=== PATIENT | male | born 1960 | race Caucasian/White ===

== ENCOUNTER 2017-06-28 20:18 | Emergency (ER) | payer BC ==
[2017-06-28 20:32] VITALS: BP 181/99
--- NOTE | 2017-06-28 20:46 | EDM.PDOC ---
ED HPI GENERAL MEDICAL PROBLEM - General Chief Complaint: Skin Complaint Stated Complaint: RED SORE SPOT ON LEFT SIDE OF STOMACH Time Seen by Provider: 06/28/17 20:35 Source of Information: Reports: Patient History Limitations: Reports: No Limitations - History of Present Illness INITIAL COMMENTS - FREE TEXT/NARRATIVE: 57-year-old male attends the ED with skin rash and hypersensitive skin in his left flank and franklyn-abdominal wall. He has 2 forms of skin rashes identified on exam. This lesion started on his left lower abdomen yesterday morning when he awoke to shower. His flank areas become very hypersensitive even his shirt hurts to touch this area over the last 24 hours. The second rashes on his elbows and inner aspect of thighs is been present for many weeks and is just really itchy and dry and scaly. No fever or chills. He noticed that one of the lesions on his left anterior abdomen seemed to be showing a red streak traveling up towards his chest tonight which is the reason that he came to the ED. Onset: Sudden (Yesterday a.m. rash started on the abdominal wall with hyper- paresthetic skin left flank area.) Onset Date: 06/27/17 Onset Time: 07:00 Duration: Hour(s): Location: Reports: Abdomen (Left franklyn-abdominal wall), Other (Other rashes once to the inner aspect of his elbows in the inner aspect of his thighs.) Quality: Reports: Ache, Burning, Other (Pruritic but burning pain.) Severity: Moderate (Pain is 7-8 out of 10 in his left hemiabdomen and flank area.) Improves with: Reports: None Worsens with: Reports: Other (Touching the area.) Context: Denies: Activity, Exercise, Lifting, Sick Contact, Trauma, Other Associated Symptoms: Reports: No Other Symptoms 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 06/28/17 [History] Betamethasone Dipropionate 50 gm TP DAILY #1 gel..gram. 06/28/17 [Rx] Doxycycline [Vibramycin] 100 mg PO Q12HR #20 cap 06/28/17 [Rx] Metoprolol. 06/28/17 [History] Otc Reflux Med? 06/28/17 [History] oxyCODONE HCl/Acetaminophen [Percocet 5-325 mg Tablet] 1 - 2 each PO Q4H PRN # 20 tablet 06/28/17 [Rx] valACYclovir HCl [valACYclovir] 1,000 mg PO TID #21 tablet 06/28/17 [Rx] Past Medical History Cardiovascular History: Reports: High Cholesterol, Hypertension Social & Family History - Living Situation & Occupation Occupation: Employed (Recently took a job position in the company that demands a lot more stress. This is interfering with his home life a great deal.) ED ROS GENERAL - Review of Systems Review Of Systems: See Below Constitutional: Reports: Malaise, Weakness, Fatigue, Decreased Appetite ( Disrupted sleep pattern). Denies: Fever, Chills HEENT: Reports: No Symptoms Respiratory: Reports: No Symptoms Cardiovascular: Reports: No Symptoms Endocrine: Reports: No Symptoms GI/Abdominal: Reports: No Symptoms : Reports: Frequency, Other (Nocturia usually once.) Musculoskeletal: Reports: No Symptoms Skin: Reports: Other (Rash as described above. Eczematous dermatitis elbows and inner thighs but shingles type rash left franklyn-abdominal wall in the T 11-T12 dermatome.) Neurological: Reports: No Symptoms, Paresthesia (Hyperperistaltic supersensitive to touch left flank and franklyn-abdominal wall) Psychiatric: Reports: No Symptoms Hematologic/Lymphatic: Reports: No Symptoms ED EXAM, SKIN/RASH Exam: See Below Exam Limited By: No Limitations General Appearance: Alert, WD/WN, No Apparent Distress Eye Exam: Bilateral Eye: Normal Inspection Cardiovascular: Normal Peripheral Pulses, Regular Rate, Rhythm, No Edema (Blood pressure is a little high.), No Murmur GI/Abdominal: Normal Bowel Sounds, Soft, Non-Tender, No Organomegaly, Other ( Mildly protuberant abdomen. No surgical scars) Back Exam: Normal Inspection, Full Range of Motion, Other (No skin lesions left flank but skin is super sensitive to touch in this area.). No: CVA Tenderness ( L), CVA Tenderness (R) Extremities: Normal Inspection, Normal Range of Motion (Skin rash elbows and inner thighs), Non-Tender, No Pedal Edema, Normal Capillary Refill, Other Neurological: Alert, Oriented, CN II-XII Intact, Normal Cognition, Normal Gait Psychiatric: Normal Affect, Normal Mood Skin: Warm, Dry, Other (Patient has 2 types of skin rash. He has an eczematous dermatitis on the inner aspect of elbows and inner thighs which is chronic. Also due to dry skin. Treated with betamethasone cream. No other rashes on the left franklyn-abdominal wall and at present he is a large 2.5 cm circular area that is bubbly but not truly vesicular area. The one other lesion is to the lateral aspect of the other and is showing red streaking traveling up towards his chest streaking is approximate 5 inches in length. It appears that this lesion has been scratched or excoriated and likely secondarily infected. He complains of left flank pain and skin is super sensitive to touch suggesting this is the beginning of shingles dermatitis. The initial rash was first noted yesterday morning. It is deeply burning and uncomfortable.) Location, Skin: Abdomen, Other (Left franklyn-abdominal wall eczematous rash involves her aspect of his elbows and inner aspect of his thighs.) Characteristics: Macular, Vesicular (Almost vesicular in the round lesion left medial abdominal wall and the T11 dermatome.), Other (Lateral singular lesion has been excoriated or scratched and is starting to show secondary signs of lymphangitis or cellulitis traveling up his left abdomen towards the chest. It is partially 5 inches in length and warm to touch.) Associated features: Warmth, Tenderness Course - Vital Signs Last Recorded V/S: Last Vital Signs Temp 36.7 C 06/28/17 20:30 Pulse 76 06/28/17 20:30 Resp BP 181/99 H 06/28/17 20:30 Pulse Ox 98 06/28/17 20:30 - Radiology Interpretation Free Text/Narrative:: 57-year-old male presents to the ED for evaluation of skin rash in 2 places. Examination reveals that he has an eczematous dermatitis involving the inner aspect of his elbows and inner thighs which is of some degree of chronicity. Advised lubricant ointment with no perfume in 2 areas at bedtime and betamethasone once daily in the morning. The other skin rash involves the left franklyn-abdominal wall and the T11-T12 dermatome and was first noted yesterday morning. Is bright red erythematous and one lesion has been scratched it appears on his lateral abdomen and is starting to show an erythematous streak up the abdomen to warts the chest on the left side. His skin in his left flank areas hyper sensitive to touch suggesting shingles development. The lesion in the medial abdomen is 2.5 cm in diameter bright red and bubbly but not truly vesicular yet. I believe he is developing shingles due to the sensitivity of pain in the distribution. He will be started on valacyclovir 1 g 3 times a day for 7 days. Percocet tabs 12/22/24 one or 2 every 4-6 hours for pain relief when not at work and to help sleep. During the daytime he can use Motrin 600 mg every 6 hours as needed. Due to the possibility of secondary wound infection and streaking I placed him on doxycycline 100 mg twice daily for 10 days. Methasone valerate ointment will be applied to the skin rash once daily on his elbows and inner thighs until this clears. He is for follow-up if not markedly improved in a week's time or sooner. Departure - Departure Time of Disposition: 20:46 Disposition: Home, Self-Care 01 Condition: Fair Clinical Impression: Wound infection Shingles rash Qualifiers: Herpes zoster complications: without complications Qualified Code(s): B02.9 - Zoster without complications Eczema Qualifiers: Eczema type: unspecified Qualified Code(s): L30.9 - Dermatitis, unspecified - Discharge Information Prescriptions: Doxycycline [Vibramycin] 100 mg PO Q12HR #20 cap Betamethasone Dipropionate 50 gm TP DAILY #1 gel..gram. oxyCODONE HCl/Acetaminophen [Percocet 5-325 mg Tablet] 1 - 2 each PO Q4H PRN # 20 tablet PRN Reason: pain relief. valACYclovir HCl [valACYclovir] 1,000 mg PO TID #21 tablet Referrals: PCP,None [Primary Care Provider] - Forms: ED Department Discharge Additional Instructions: Evaluation in the emergency room tonight in regards to skin rashes which are of 2 different sources. Skin rash on the inner aspect of the right elbow in the inner aspect of thighs is an eczema which is due to very dry scaly skin. Treatment is skin emollient to these areas once daily with no perfume and bed and betamethasone valerate cream once daily total dose areas at bedtime until clear. Rash tends to come and go and you may have to use the salve intermittently especially through the winter months. The second rash on her abdominal wall with hypersensitivity in your left flank area strongly suggest the development of shingles. One lesion on the left upper wall some red streaking going up towards the chest suggesting that it has been scratched and then developing secondary infection. Therefore you need to start antibiotic doxycycline 100 mg twice daily for 10 days to clear up wound infection. The shingles rash is treated with antiviral medication valacyclovir 1 g 3 times daily for the next 7 days. The rash will likely continue to break out for the next week and then starts to scab over and leaves a discoloration of the skin sometimes for several months before returns to normal. The goal of the antiviral medication is to prevent long-term pain no postherpetic neuralgia. Continue Motrin 600 mg every 6 hours needed for relief of pain especially while at work. When the pain is worse or at nighttime and interferes with her sleeping may use stronger pain medication Percocet 5/3/25 milligram tablet 1 or 2 every 4-6 hours for pain relief. 600mg of of Motrin and 1 Percocet often do the job quite well. Cannot use the strong pain medications while operating a motor vehicle etc. Follow-up with personal physician if any other problems occur or if you develop fever chills nausea or vomiting return to the ED.
== END 2017-06-28 21:06 | disposition home or self-care (01) ==
LOC: JD.ED 20:18
DX: B02.9 Zoster without complications (principal); L30.9 Dermatitis, unspecified; L08.9 Local infection of the skin and subcutaneous tissue, unspecified; I10 Essential (primary) hypertension; E78.00 Pure hypercholesterolemia, unspecified; Z79.899 Other long term (current) drug therapy; Z91.013 Allergy to seafood
CPT/HCPCS: 99283

== ENCOUNTER 2019-10-17 06:24 | Emergency (ER) | payer BC ==
[2019-10-17 06:41] VITALS: BP 182/104; PULSE 82
[2019-10-17] MEDS ORDERED: Sodium Chloride 0.9% 10 ML Syringe FLUSH PRN ×2 (07:08→07:15)
[2019-10-17] MEDS ORDERED: Iopamidol 755 Mg/ML 100 ML Bottle IVPUSH ONE (07:15)
[2019-10-17] MEDS ORDERED: Sodium Chloride 0.9% 100 ML IV SCH (07:15)
[2019-10-17] MEDS ORDERED: diphenhydrAMINE 50 MG/ML SDV IVPUSH ONE (07:29)
--- NOTE | 2019-10-17 08:41 | EDM.PDOC ---
ED HPI GENERAL MEDICAL PROBLEM - General Chief Complaint: Cardiovascular Problem Stated Complaint: blood pressure Time Seen by Provider: 10/17/19 07:02 Source of Information: Reports: Patient History Limitations: Reports: No Limitations - History of Present Illness INITIAL COMMENTS - FREE TEXT/NARRATIVE: The patient presents with chest pressure and palpitations. This started at 5: 30am. The pressure is gone now. He has no shortness of breath. He has a history of AAA repair and aortic valve replacement in June. He has been doing good since the. He would get these symptoms before the surgery. He has no other symptoms such as fever, chills, cough, congestion, runny nose, abdominal pain, nausea or vomiting. He checked his blood pressure this morning and it was high at 180. His pressure is better now. He has a history of hypertension but no history of diabetes or hypercholesterolemia. Onset: Sudden Duration: Hour(s): Location: Reports: Chest Quality: Reports: Pressure Severity: Moderate Improves with: Reports: None Worsens with: Reports: None Associated Symptoms: Reports: Chest Pain. Denies: Cough, Fever/Chills, Headaches, Nausea/Vomiting, Shortness of Breath - Related Data Allergies Allergy/AdvReac Type Severity Reaction Status Date / Time shellfish derived Allergy Swelling Verified 10/17/19 06:41 sulfacetamide sodium Allergy Rash Verified 10/17/19 06:41 [From Sulfamide] Home Meds: Home Meds Aspirin 81 mg PO DAILY 10/17/19 [History] Metoprolol Tartrate 25 mg PO DAILY 10/17/19 [History] atorvaSTATin [Lipitor] 10 mg PO DAILY 10/17/19 [History] Past Medical History Cardiovascular History: Reports: Congenital Septal Defect, Heart Valve Replacement, High Cholesterol, Hypertension Other Cardiovascular History: valve problem - Past Surgical History Musculoskeletal Surgical History: Reports: Joint Replacement, Knee Replacement, Shoulder Replacement, Shoulder Surgery Social & Family History - Tobacco Use Smoking Status *Q: Never Smoker Second Hand Smoke Exposure: No - Caffeine Use Caffeine Use: Reports: None - Recreational Drug Use Recreational Drug Use: No - Living Situation & Occupation Occupation: Employed (Recently took a job position in the company that demands a lot more stress. This is interfering with his home life a great deal.) ED ROS GENERAL - Review of Systems Review Of Systems: See Below Constitutional: Reports: No Symptoms HEENT: Reports: No Symptoms Respiratory: Reports: No Symptoms Cardiovascular: Reports: Chest Pain Endocrine: Reports: No Symptoms GI/Abdominal: Reports: No Symptoms : Reports: No Symptoms Musculoskeletal: Reports: No Symptoms Skin: Reports: No Symptoms Neurological: Reports: No Symptoms ED EXAM, GENERAL - Physical Exam Exam: See Below Exam Limited By: No Limitations General Appearance: Alert, No Apparent Distress Ears: Normal External Exam Nose: Normal Inspection Head: Atraumatic, Normocephalic Neck: Normal Inspection Respiratory/Chest: No Respiratory Distress, Lungs Clear, Normal Breath Sounds Cardiovascular: Regular Rate, Rhythm, No Edema, No Murmur GI/Abdominal: Soft, Non-Tender, No Organomegaly, No Mass Back Exam: Normal Inspection Extremities: Normal Inspection EKG INTERPRETATION EKG Date: 10/17/19 Time: 06:48 Rhythm: NSR Rate (Beats/Min): 68 [place]: Normal P-Wave: Present QRS: Normal ST-T: Normal QT: Normal Course - Vital Signs Last Recorded V/S: Last Vital Signs Temp 97.5 F 10/17/19 06:37 Pulse 82 10/17/19 06:37 Resp 18 10/17/19 06:37 BP 182/104 H 10/17/19 06:37 Pulse Ox 97 10/17/19 06:37 - Orders/Labs/Meds Orders: Active Orders 24 hr Category Date Time Status Cardiac Monitoring [RC] . DIRECTED Care 10/17/19 07:08 Active EKG 12 Lead [EKG Documentation Completion] [RC] STAT Care 10/17/19 06:47 Active Peripheral IV Care [RC] . DIRECTED Care 10/17/19 07:10 Active TROPONIN I [CHEM] Stat Lab 10/17/19 09:28 Ordered Sodium Chloride 0.9% [Normal Saline] 100 ml Med 10/17/19 07:15 Active IV ASDIRECTED Sodium Chloride 0.9% [Saline Flush] Med 10/17/19 07:08 Active 10 ml FLUSH ASDIRECTED PRN Sodium Chloride 0.9% [Saline Flush] Med 10/17/19 07:15 Active 10 ml FLUSH ONETIME PRN Peripheral IV Insertion Adult [OM.PC] Stat Oth 10/17/19 07:08 Ordered Medication Orders Sodium Chloride (Normal Saline) 100 mls @ 75 mls/hr IV ASDIRECTED GEOFF Last Admin: 10/17/19 07:52 Dose: 75 mls/hr Sodium Chloride (Saline Flush) 10 ml FLUSH ASDIRECTED PRN PRN Reason: Keep Vein Open Last Admin: 10/17/19 07:35 Dose: 10 ml Sodium Chloride (Saline Flush) 10 ml FLUSH ONETIME PRN PRN Reason: IV FLUSH Last Admin: 10/17/19 07:52 Dose: 10 ml Labs: Laboratory Tests 10/17/19 10/17/19 Range/Units 07:30 07:30 WBC 5.04 (4.23-9.07) K/mm3 RBC 5.08 (4.63-6.08) M/mm3 Hgb 14.3 (13.7-17.5) gm/dl Hct 43.0 (40.1-51.0) % MCV 84.6 (79.0-92.2) fl MCH 28.1 (25.7-32.2) pg MCHC 33.3 (32.2-35.5) g/dl RDW Std Deviation 50.9 H (35.1-43.9) fL Plt Count 217 (163-337) K/mm3 MPV 9.3 L (9.4-12.3) fl Neut % (Auto) 59.7 (34.0-67.9) % Lymph % (Auto) 25.8 (21.8-53.1) % [place] % (Auto) 11.9 (5.3-12.2) % Eos % (Auto) 1.8 (0.8-7.0) Baso % (Auto) 0.6 (0.1-1.2) % Neut # (Auto) 3.01 (1.78-5.38) K/mm3 Lymph # (Auto) 1.30 L (1.32-3.57) K/mm3 [place] # (Auto) 0.60 (0.30-0.82) K/mm3 Eos # (Auto) 0.09 (0.04-0.54) K/mm3 Baso # (Auto) 0.03 (0.01-0.08) K/mm3 Sodium 140 (136-145) mEq/L Potassium 4.3 (3.5-5.1) mEq/L Chloride 105 (98-107) mEq/L Carbon Dioxide 26 (21-32) mEq/L Anion Gap 13.3 (5-15) BUN 14 (7-18) mg/dL Creatinine 1.0 (0.7-1.3) mg/dL Est Cr Clr Drug Dosing 81.50 mL/min Estimated GFR (MDRD) > 60 (>60) mL/min BUN/Creatinine Ratio 14.0 (14-18) Glucose 119 H (74-106) mg/dL Calcium 9.4 (8.5-10.1) mg/dL Total Bilirubin 0.4 (0.2-1.0) mg/dL AST 27 (15-37) U/L ALT 41 (16-63) U/L Alkaline Phosphatase 93 (46-116) U/L Troponin I < 0.017 (0.00-0.056) ng/mL Total Protein 8.6 H (6.4-8.2) g/dl Albumin 3.9 (3.4-5.0) g/dl Globulin 4.7 gm/dL Albumin/Globulin Ratio 0.8 L (1-2) Meds: Medications Generic Name Dose Route Start Last Admin Trade Name Freq PRN Reason Stop Dose Admin Sodium Chloride 100 mls @ 75 mls/hr 10/17/19 07:15 10/17/19 07:52 Normal Saline IV 75 mls/hr ASDIRECTED GEOFF Administration Sodium Chloride 10 ml 10/17/19 07:08 10/17/19 07:35 Saline Flush FLUSH 10 ml ASDIRECTED PRN Administration Keep Vein Open Sodium Chloride 10 ml 10/17/19 07:15 10/17/19 07:52 Saline Flush FLUSH 10 ml ONETIME PRN Administration IV FLUSH Discontinued Medications Generic Name Dose Route Start Last Admin Trade Name Frejohnathan PRN Reason Stop Dose Admin Diphenhydramine HCl 50 mg 10/17/19 07:29 10/17/19 07:34 Benadryl IVPUSH 10/17/19 07:30 50 mg ONETIME ONE Administration Iopamidol 100 ml 10/17/19 07:15 10/17/19 07:52 [id number] (76%) IVPUSH 10/17/19 07:16 100 ml ONETIME ONE Administration - Re-Assessments/Exams Free Text/Narrative Re-Assessment/Exam: 10/17/19 08:41 I ordered an IV saline lock, EKG, CT of his chest, abdomen and pelvis and labs. His EKG shows a NSR with no acute changes. His CBC and CMP look good. His troponin is negative. I am waiting for the results of the CT scan. I did give him some benadryl because he has a shellfish allergy. 10/17/19 09:[address] of his chest shows thoracic aorta shows no aneurysm or dissection. Other findings believed to be incidental as noted above. Nothing acute is seen on CT study of the chest. The CT of his abdomen and pelvis shows abdominal aorta shows no aneurysm or dissection. Other findings which are felt to be incidental. No acute abnormality is appreciated on CT study of the abdomen and pelvis. He feels good. I will do a repeat troponin and discharge him home. Departure - Departure Time of Disposition: 09:40 Disposition: Home, Self-Care 01 Condition: Good Clinical Impression: Chest pain Qualifiers: Chest pain type: unspecified Qualified Code(s): R07.9 - Chest pain, unspecified Referrals: Leo Alvarenga Jr, MD [Primary Care Provider] - 1 Week Forms: ED Department Discharge Additional Instructions: Take your medication as prescribed. Follow up with your doctor within a week. Please return if you are worse. Sepsis Event Note - Evaluation Sepsis Screening Result: No Definite Risk - Focused Exam Vital Signs: Vital Signs Temp Pulse Resp BP Pulse Ox 10/17/19 06:37 97.5 F 82 18 182/104 H 97 Date Exam was Performed: 10/17/19 Time Exam was Performed: 09:35 - My Orders Last 24 Hours: My Active Orders 10/17/19 06:47 EKG 12 Lead [EKG Documentation Completion] [RC] STAT 10/17/19 07:08 Cardiac Monitoring [RC] . DIRECTED Sodium Chloride 0.9% [Saline Flush] 10 ml FLUSH ASDIRECTED PRN Peripheral IV Insertion Adult [OM.PC] Stat 10/17/19 07:10 Peripheral IV Care [RC] . DIRECTED 10/17/19 07:15 Sodium Chloride 0.9% [Normal Saline] 100 ml IV ASDIRECTED Sodium Chloride 0.9% [Saline Flush] 10 ml FLUSH ONETIME PRN 10/17/19 09:28 TROPONIN I [CHEM] Stat - Assessment/Plan Last 24 Hours: My Active Orders 10/17/19 06:47 EKG 12 Lead [EKG Documentation Completion] [RC] STAT 10/17/19 07:08 Cardiac Monitoring [RC] . DIRECTED Sodium Chloride 0.9% [Saline Flush] 10 ml FLUSH ASDIRECTED PRN Peripheral IV Insertion Adult [OM.PC] Stat 10/17/19 07:10 Peripheral IV Care [RC] . DIRECTED 10/17/19 07:15 Sodium Chloride 0.9% [Normal Saline] 100 ml IV ASDIRECTED Sodium Chloride 0.9% [Saline Flush] 10 ml FLUSH ONETIME PRN 10/17/19 09:28 TROPONIN I [CHEM] Stat
--- NOTE | 2019-10-17 08:55 | CT ---
CT chest Technique: Multiple axial sections were obtained from above the lung apices inferiorly through the lung bases. Intravenous contrast was utilized. Comparison: No prior chest imaging is available. Findings: Thoracic aorta shows no aneurysm. No dissection is seen. Previous aortic valve surgery is noted. No contrast extravasation is seen into the mediastinum. No adenopathy is seen. Axillary regions show no adenopathy. No pericardial thickening is seen. Lungs are clear with no acute parenchymal change. No pleural effusions are seen. Bone window settings were reviewed which show scattered degenerative change within the spine. Previous sternotomy is noted. Old healed fracture is noted within the 10th right rib laterally. Impression: 1. Thoracic aorta shows no aneurysm or dissection. 2. Other findings believed to be incidental as noted above. Nothing acute is seen on CT study of the chest. Diagnostic code #2 CT abdomen and pelvis Technique: Multiple axial sections were obtained from above the dome of the diaphragm inferiorly through the pubic symphysis. Intravenous contrast was utilized. No oral contrast has been given. Findings: Abdominal aorta shows no aneurysm. No dissection is appreciated. Celiac axis and superior mesenteric arteries are patent. No discrete renal artery stenosis is seen. Liver contains no focal abnormality. Spleen appears within normal limits. Adrenal glands show no nodule. Kidneys show symmetric contrast enhancement without hydronephrosis or mass. Pancreas is within normal limits. Gallbladder contains no calcified gallstones. No retroperitoneal adenopathy or mesenteric abnormalities are seen. No pelvic mass or adenopathy is noted. Small fat-containing bilateral inguinal hernias are noted. Appendix is felt to be visualized and is normal in size. Bone window settings were reviewed which show mild degenerative change within the lumbar spine. No acute osseous finding is appreciated. Impression: 1. Abdominal aorta shows no aneurysm or dissection. 2. Other findings which are felt to be incidental as noted above. 3. No acute abnormality is appreciated on CT study of the abdomen and pelvis. Diagnostic code #2 This report was dictated in [place] Standard Time
== END 2019-10-17 09:50 | disposition home or self-care (01) ==
LOC: JD.ED 06:24
DX: R07.89 Other chest pain (principal); I10 Essential (primary) hypertension; E78.00 Pure hypercholesterolemia, unspecified; Z91.013 Allergy to seafood; Z88.2 Allergy status to sulfonamides; Z79.899 Other long term (current) drug therapy; Z79.82 Long term (current) use of aspirin
CPT/HCPCS: 36415; 71260; 74177; 80053; 84484; 85025; 93005; 96361; 96374; 99285; J1200; J7050; Q9967; 93010; 99284